=== PATIENT | male | born 2000 | race Asian ===

== ENCOUNTER → 2020-10-18 10:40 | Outpatient (BNVA) | payer BC, SELFPAY | PROVIDERS: PCP Internal Medicine; Visit Provider Urology ==

== ENCOUNTER → 2020-10-31 10:42 | Day surgery (SDC) | payer BC, SELFPAY ==
[2020-10-31 11:47] VITALS: BP 129/80; PULSE 64; RESP 16; TEMP 36.6; O2SAT 100
--- NOTE | 2020-10-31 12:10 | PC.NURSE ---
SURGERY CANCELLED DUE TO [employer] OUT[employer]. TO CALL OFFICE TO RESCHEDULE
== END ==
PROVIDERS: PCP Internal Medicine; Visit Provider Urology
DX: N47.1 Phimosis (principal); Z53.8 Procedure and treatment not carried out for other reasons
CPT/HCPCS: J0690

== ENCOUNTER 2020-11-28 12:10 | Day surgery (SDC) | payer BC, SELFPAY ==
[2020-11-08 19:57] VITALS: BMI 20.7
[2020-11-28] VITALS (7 sets, daily range): BP systolic 108–137; BP diastolic 72–92; PULSE 56–76; RESP 12–20; TEMP 36.2–36.6; O2SAT 99–100
[2020-11-28] MEDS: Lactated Ringers 1,000 ML 50 ML IV (12:30)
--- NOTE | 2020-11-28 13:10 | P.CONAN_ITS ---
[facility] Active Problems Active Problems: All Active Problems (Updated 10/18/20 @ 11:05 by Josue merritt MD) Phimosis of penis (Acute) Past Medical History Medical History Phimosis of penis Surgical History Surgical History H/O wisdom tooth extraction Social History Social History Smoking Status: Current every day smoker Tobacco Type: Cigarette Cigarettes Per Day: 2 Smoked in Last 30 Days: Yes Use of substances other than those prescribed or required for medical reasons: No Advance Directives: No Advance Directives Information Provided: No Advance Directives on File: No Recently lost weight without trying: No Meds Allergies Allergy/AdvReac Type Severity Reaction Status Date / Time No Known Allergies Allergy Verified 10/31/20 11:47 Home Medications Medication Instructions Recorded Confirmed Last Taken Type No Known Home Meds 11/09/20 11/09/20 Unknown History Exam Exam Date and Time: November 28, 2020 1310 Height,Weight and Vital Signs: Height 5 ft 5 in Weight 56.699 kg Last Vital Signs Temp 98 F 11/28/20 12:17 Pulse 61 11/28/20 12:17 Resp 20 11/28/20 12:17 BP 108/72 11/28/20 12:17 Pulse Ox 99 11/28/20 12:17 Airway Mallampati Class: II TM Dist: >3cm Neck ROM: Full Heart: RRR Lungs: CTA
--- NOTE | 2020-11-28 15:32 | MHC.SHP ---
Pre-Procedural Eval Section A The patient is an INPATIENT: No Changes since office visit: No Cold of Flu in the past 2 weeks, No New Medical Problems, No Changes in Medication and No Patient answered all questions The History & Physical has been completed within 30 days and I have reviewed it.: Yes Section B Chief Complaint: Phimosis Allergies: Allergies Allergy/AdvReac Type Severity Reaction Status Date / Time No Known Allergies Allergy Verified 10/31/20 11:47 Plan Diagnosis/Plan: Unchanged ( Circumcision- ) I have reviewed the history and physical and performed a pertinent physical examination on my patient. No changes have occurred unless specified.
--- NOTE | 2020-11-28 15:35 | P.HPSUR_ITS ---
Pre-Procedural Eval Section B Chief Complaint: Phimosis Details of Present Illness: Phimosis Relevant Family History (Specify if Yes): No Relevant Social History: None Present Medications: None Medical History: No relevant PMH History of Previous Operations: No relevant previous surgery Allergies: Allergies Allergy/AdvReac Type Severity Reaction Status Date / Time No Known Allergies Allergy Verified 10/31/20 11:47 Review of Systems Sugical H&P ROS: Negative: Constitution, Cardiovascular, Respiratory, Neurological, Psychiatric, Hem-Onc, Allergic/Immunologic, Gastrointestinal, Genitourinary, Musculoskeletal, Integumentary, Endocrine and Eyes/Ears/Nose/T hroat Exam Surgical H&P Exam: Normal: HEENT, Normal: Heart, Normal: Lungs, Normal: Extremities, Normal: Abdomen, Normal: Skin and Normal: Neurological Plan Diagnosis/Plan: Unchanged I have reviewed the history and physical and performed a pertinent physical examination on my patient. No changes have occurred unless specified.
--- NOTE | 2020-11-28 16:46 | PM.OP ---
Brief Operative Note Date of Service: 11/28/20 Pre-op diagnosis: Phimosis Post-op diagnosis: same Procedure: Circumcision Surgeon: Josue Barajas MD Anesthesia: GLMA Estimated blood loss (mL): 0 Pathology: other Condition: stable Disposition: same day
--- NOTE | 2020-11-28 16:49 | P.OP_ITS ---
Operative Note Operative Note Date of Service: 11/28/20 Narrative: PreOperative Diagnosis: Balanitis and phimosis Post Operative Diagnosis: Balanitis and phimosis Procedure: Circumcision with frenular sparing Surgeon: Dr Josue Barajas Anesthesia: General Indications for procedure: Recurring balanitis in inability to withdrawal foreskin of penile glans. Risks and benefits including bleeding, scarring, need for revision surgery been discussed. Procedure: After informed consent was verified the patient was brought to the operating room and placed in a supine position. Anesthesia was administered per protocol. The patient was prepped and draped sterile fashion. Safety pause time-out was performed. Antibiotics have been given. The penis was examined and proximal incision marked that lay just proximal to the resting position of the penile sulcus. This was followed around the circumference of the penis. A penile ring block was performed using 1% lidocaine with no epinephrine. Approximately 8 cc. The proximal incision was developed with sharp blade running circumferentially around the penis. The skin was to give a 1 cm separation between the foreskin in the remaining penile shaft skin. The foreskin was withdrawn and the penile glans exposed. A a distal incision was made approximately 5 mm proximal to the penile sulcus. At the area of the frenulum care was taken to empty the penile frenulum intact. Using clamps the dorsal skin was elevated. Using Metzenbaum scissors the avascular plane was entered and proximal and distal incision were joined. The bridging skin was elevated and clamped. It was then divided using Bovie. The sleeve of tissue was then removed circumferentially around the penis using c autery in order to minimize bleeding. The shaft was then examined in any bleeding areas were controlled. More local anesthetic was injected into the plane beneath avascular plane to help with postprocedure pain management. The skin edges after they were appropriately examined low reapposed. A 3-0 chromic suture was placed at 12:00 o'clock and 06:00 o'clock positions. Interrupted 3-0 was then placed the 09:00 o'clock and 3 o'clock position. Each quadrant was then filled with 3 sutures using 4-0 chromic. At the completion of the procedure there was adequate hemostasis. The incision was washed and dried. Antibiotic cream was applied to the incision. A Adrianne wrap was applied followed by a Coban dressing. Xeroform gauze had been used to cover antibiotic ointment. He tolerated the procedure well and was extubated in the room and transferred in stable condition to the recovery area. Pathology: Foreskin Drains: none
== END 2020-11-28 17:43 | disposition home or self-care (01) ==
PROVIDERS: PCP Internal Medicine; Visit Provider Urology
PROC: (CPT 54161; principal; 2020-11-28 14:00)
DX: N47.1 Phimosis (principal); N48.1 Balanitis; F17.210 Nicotine dependence, cigarettes, uncomplicated
CPT/HCPCS: 54161; 88304; J0690; J1100; J2250; J2405; J3010

== ENCOUNTER → 2021-01-05 10:40 | Outpatient (BNVA) | payer BC, SELFPAY | PROVIDERS: PCP Internal Medicine; Visit Provider Urology ==